=== PATIENT | female | born 1965 | race American Indian/Alaskan Native ===

== ENCOUNTER 2017-02-11 23:43 | Inpatient (IN) | payer OTHER ==
[2017-02-12 00:11] LABS: Basophils % (Auto) 0.3 % (0.0-1.8); Eosinophils % (Auto) 2.5 % (0.0-4.3); Hematocrit 38.6 % (30.3-42.9); Hemoglobin 12.4 gm/dl (10.1-14.3); Mean Corpuscular HGB Conc 32 % (30-34); Mean Corpuscular Volume 78 fl (79-97); Platelet Count 152 K/mm3 (140-440); Red Blood Count 4.93 M/mm3 (3.65-5.03); Red Cell Distribution Width 15.1 % (13.2-15.2)
[2017-02-12 00:14] LABS: Mean Corpuscular Hemoglobin 25 pg (28-32)
[2017-02-12 00:32] LABS: Anion Gap 19 mmol/L; BUN/Creatinine Ratio 12.22; Blood Urea Nitrogen 11 mg/dL (7-17); Calcium 9.1 mg/dL (8.4-10.2); Carbon Dioxide 24 mmol/L (22-30); Chloride 99.5 mmol/L (98-107); Glucose 109 mg/dL (65-100); Potassium 4.4 mmol/L (3.6-5.0); Sodium 138 mmol/L (137-145)
[2017-02-12 00:43] LABS: INR 1.1 (0.87-1.13); Partial Thromboplastin Time 26.1 Sec. (24.2-36.6)
--- NOTE | 2017-02-12 00:44 | Emergency Department Report ---
ED Chest Pain HPI - General Chief Complaint: Chest Pain Stated Complaint: CHEST PAIN Time Seen by Provider: 02/12/17 00:06 Source: patient Mode of arrival: Ambulatory Limitations: No Limitations - History of Present Illness Initial Comments: 51-year-old female presents to the emergency department complaining of chest pain. Patient states for the past 2 days she has been having intermittent right -sided chest pain. This pain does not radiate. Patient is unable to describe the pain other than "pain". She reports mild difficulty breathing. She states the pain is worse when taking a deep breath. She denies dizziness, diaphoresis , nausea, or vomiting. at bedside also notes that the patient's heart rate has been elevated at home. There are no other complaints. MD Complaint: chest pain -: Gradual, days(s) (2) Onset: during rest Pain Location: right chest Pain Radiation: none Severity: mild Severity scale (0 -10): 3 Quality: other ("pain") Consistency: intermittent Improves With: nothing Worsens With: inspiration re: dyspnea. denies: nausea, vomting, diaphoresis Treatments Prior to Arrival: none Aspirin use within the Past 7 Days: (1) Yes - Related Data Home Medications Medication Instructions Recorded Confirmed Last Taken Aspirin [[place] Aspirin] 81 mg PO DAILY 03/03/14 02/12/17 02/12/17 Lacosamide [Vimpat] 200 mg PO BID 03/03/14 02/12/17 02/12/17 levETIRAcetam [Keppra TAB] 750 mg PO BID 02/12/17 02/12/17 02/12/17 Allergies Allergy/AdvReac Type Severity Reaction Status Date / Time No Known Allergies Allergy Verified 12/13/14 09:40 Heart Score - HEART Score History: Slightly suspicious EKG: Non-specific Age: 45-65 Risk factors: 1-2 risk factors Troponin: < normal limit HEART Score: 3 ED Review of Systems ROS: Stated complaint: CHEST PAIN Other details as noted in HPI Comment: All other systems reviewed and negative Respiratory: shortness of breath Cardiovascular: chest pain, palpitations ED Past Medical Hx - Past Medical History Previous Medical History?: Yes Hx Seizures: Yes Additional medical history: lupus - Surgical History Past Surgical History?: No - Family History Family history: no significant - Social History Smoking Status: Never Smoker Substance Use Type: Alcohol - Medications Home Medications: Home Medications Medication Instructions Recorded Confirmed Last Taken Type Aspirin [[place] Aspirin] 81 mg PO DAILY 03/03/14 02/12/17 02/12/17 History Lacosamide [Vimpat] 200 mg PO BID 03/03/14 02/12/17 02/12/17 History levETIRAcetam [Keppra TAB] 750 mg PO BID 02/12/17 02/12/17 02/12/17 History ED Physical Exam - General Limitations: No Limitations General appearance: alert, in no apparent distress - Head Head exam: Present: atraumatic, normocephalic - Eye Eye exam: Present: normal appearance, PERRL, EOMI - ENT ENT exam: Present: normal exam, normal orophraynx, mucous membranes moist - Neck Neck exam: Present: normal inspection, full ROM. Absent: tenderness - Respiratory Respiratory exam: Present: normal lung sounds bilaterally. Absent: respiratory distress - Cardiovascular Cardiovascular Exam: Present: normal rhythm, tachycardia, normal heart sounds - GI/Abdominal GI/Abdominal exam: Present: soft, normal bowel sounds. Absent: distended, tenderness - Extremities Exam Extremities exam: Present: normal inspection, full ROM. Absent: tenderness - Back Exam Back exam: Present: normal inspection, full ROM. Absent: tenderness - Neurological Exam Neurological exam: Present: alert, oriented X3. Absent: motor sensory deficit - Skin Skin exam: Present: warm, dry, intact ED Course Vital Signs 02/11/17 02/11/17 02/12/17 23:47 23:54 00:00 Temperature 97.6 F Pulse Rate 65 123 H 121 H Respiratory 18 20 34 H Rate Blood Pressure 151/96 Blood Pressure 157/104 [Right] O2 Sat by Pulse 100 100 99 Oximetry 02/12/17 02/12/17 02/12/17 00:07 00:11 00:20 Temperature Pulse Rate 115 H 124 H 126 H Respiratory 31 H 30 H 30 H Rate Blood Pressure 151/96 145/100 Blood Pressure 147/99 [Right] O2 Sat by Pulse 100 99 99 Oximetry 02/12/17 02/12/17 02/12/17 00:30 00:41 00:51 Temperature Pulse Rate 125 H 126 H 124 H Respiratory 29 H 24 31 H Rate Blood Pressure 133/99 145/100 133/85 Blood Pressure [Right] O2 Sat by Pulse 100 99 99 Oximetry 02/12/17 02/12/17 02/12/17 01:00 01:19 01:21 Temperature Pulse Rate 112 H 113 H 112 H Respiratory 29 H 16 18 Rate Blood Pressure 122/91 122/91 122/91 Blood Pressure [Right] O2 Sat by Pulse 99 100 Oximetry 02/12/17 02/12/17 02/12/17 01:30 01:41 01:51 Temperature Pulse Rate 119 H 116 H 106 H Respiratory 20 16 24 Rate Blood Pressure 121/97 121/97 121/88 Blood Pressure [Right] O2 Sat by Pulse 100 99 98 Oximetry 02/12/17 02/12/17 02/12/17 02:00 02:11 02:21 Temperature Pulse Rate 118 H 117 H 104 H Respiratory 19 25 H 21 Rate Blood Pressure 122/86 122/86 117/84 Blood Pressure [Right] O2 Sat by Pulse 98 99 98 Oximetry 02/12/17 02/12/17 02/12/17 02:30 02:41 02:51 Temperature Pulse Rate 116 H 111 H 114 H Respiratory 16 22 21 Rate Blood Pressure 121/83 121/83 122/77 Blood Pressure [Right] O2 Sat by Pulse 98 98 98 Oximetry 02/12/17 02/12/17 02/12/17 03:00 03:11 03:21 Temperature Pulse Rate 116 H 100 H 101 H Respiratory 22 28 H 21 Rate Blood Pressure 123/87 123/87 120/90 Blood Pressure [Right] O2 Sat by Pulse 98 99 98 Oximetry 02/12/17 02/12/17 02/12/17 03:52 04:00 04:10 Temperature Pulse Rate 114 H 116 H 96 H Respiratory 22 19 Rate Blood Pressure 120/90 128/98 120/90 Blood Pressure [Right] O2 Sat by Pulse 98 99 Oximetry 02/12/17 02/12/17 02/12/17 04:21 04:31 04:41 Temperature Pulse Rate 118 H 95 H 84 Respiratory 18 22 21 Rate Blood Pressure 120/90 120/90 120/90 Blood Pressure [Right] O2 Sat by Pulse 100 99 98 Oximetry 02/12/17 04:51 Temperature Pulse Rate 87 Respiratory 22 Rate Blood Pressure 128/98 Blood Pressure [Right] O2 Sat by Pulse 99 Oximetry ED Medical Decision Making - Lab Data Result diagrams: 02/11/17 23:51 02/11/17 23:51 - EKG Data -: EKG Interpreted by Me EKG shows normal: intervals, QRS complexes Rate: tachycardia - EKG Data When compared to previous EKG there are: previous EKG unavailable Interpretation: nonspecific ST-T wave lee, other (atrial flutter with variable block, right axis deviation) - Radiology Data Radiology results: report reviewed, image reviewed interpreted by me: Chest x-ray shows cardiomegaly. There are no other acute abnormalities. CTA of the chest shows no evidence of pulmonary embolism. There is a filling defect in the left atrium that is possibly a mass versus a thrombus. - Medical Decision Making Lab and imaging results reviewed and discussed with the patient and family. Patient initially had a rhythm of atrial flutter with variable block. Patient has since spontaneously converted to normal sinus rhythm. CT results were discussed with the on-call physician for [facility] heart specialists. Patient is empirically being started on a heparin drip. Transesophageal echocardiogram is being ordered. Patient is to be admitted by the hospitalist. - Differential Diagnosis ACS, atypical chest pain, hyperthyroidism, PE Critical care attestation.: If time is entered above; I have spent that time in minutes in the direct care of this critically ill patient, excluding procedure time. ED Disposition Clinical Impression: Paroxysmal atrial flutter, Left atrial mass Disposition: -09 OP ADMIT IP TO THIS HOSP Is pt being admited?: Yes Condition: Stable Referrals: PRIMARY CARE, [Primary Care Provider] - 3-5 Days Time of Disposition: 05:18
--- NOTE | 2017-02-12 02:00 | XRay Report ---
FINAL REPORT PROCEDURE: XR CHEST 1V AP TECHNIQUE: Chest radiograph anteroposterior view. CPT 22668 HISTORY: chest pain COMPARISON: No prior studies are available for comparison. FINDINGS: Heart: Heart is enlarged Mediastinum/Vessels: Normal. Lungs/Pleural space: Lungs are well-expanded and clear. There are no infiltrates, effusions or pneumothoraces.. Bony thorax: No acute osseous abnormality. Life support devices: None. IMPRESSION: No acute cardiopulmonary abnormality.
[2017-02-12] MEDS ORDERED: NACL ONE (03:30)
--- NOTE | 2017-02-12 04:44 | Cat Scan Report ---
FINAL REPORT PROCEDURE: CT ANGIO CHEST TECHNIQUE: Computerized axial tomographic angiography of the chest and pulmonary arteries was performed after the IV injection of iodinated nonionic contrast. The image data was postprocessed using maximum intensity projection (MIP) and 2-dimensional multiplanar reformatted (MPR) techniques. The examination is specifically tailored to the evaluation of the pulmonary arteries per clinical request. HISTORY: Short of breath 786.09, chest pain 786.50, chest pain, SOB, r/o PE COMPARISON: No prior studies are available for comparison. FINDINGS: Heart and pericardium: The heart is borderline enlarged. There is dilatation of the left atrium. There is contrast in the left atrium. There is a mural based filling defect measuring 2.5 x 5 x 1 centimeters along the posterior wall which could be left atrial thrombus. A mass cannot be excluded. Transesophageal echocardiogram is recommended.. Thoracic aorta: There is no thoracic aortic aneurysm or dissection.. Pulmonary vasculature: There is no pulmonary embolism.. Lymph nodes: No enlarged thoracic lymph nodes. Lungs: There are no infiltrates, effusions or pneumothoraces. The lungs are well-expanded.. Pleural space: No effusion, thickening, or pneumothorax. Musculoskeletal structures: No significant abnormality. Upper abdominal structures: No significant abnormality. IMPRESSION: There is no thoracic aortic aneurysm or dissection. There is no pulmonary embolism.. There is a left atrial mass or thrombus. Transesophageal echocardiogram suggested.
[2017-02-12] MEDS ORDERED: HEPARIN 10,000 UNITS/10 ML IV ONE (05:14)
[2017-02-12] MEDS ORDERED: ZOFRAN IV PRN (05:31)
[2017-02-12] MEDS ORDERED: MORPHINE IV PRN (05:31)
[2017-02-12] MEDS ORDERED: TYLENOL PO PRN (05:32)
[2017-02-12] MEDS: HEPARIN/ 0.45% NACL-25,000 UNIT/500 ML 25,000 UNIT/500 ML BAG IV SCH ×2 (05:49→23:00)
--- NOTE | 2017-02-12 06:05 | History and Physical Report ---
History of Present Illness Date of examination: 02/12/17 Date of admission: 02/12/2017 Chief complaint: Chief complaint is palpitation, there complaining include chest pain and shortness of breath History of present illness: History of present illness, patient is a 51-year-old female who started having chest pain going on for the last 24-48 hours and feet hours prior to presentation patient developed rapid heartbeat associated with shortness of breath but no diaphoresis and no nausea vomiting. There is also no history of dizziness cough for fever Past History Past Medical History: seizures, other (LUPUS) Past Surgical History: No surgical history Social history: no significant social history Family history: no significant family history Medications and Allergies Allergies Allergy/AdvReac Type Severity Reaction Status Date / Time No Known Allergies Allergy Verified 12/13/14 09:40 Home Medications Medication Instructions Recorded Confirmed Last Taken Type Aspirin [[place] Aspirin] 81 mg PO DAILY 03/03/14 02/12/17 02/12/17 History Lacosamide [Vimpat] 200 mg PO BID 03/03/14 02/12/17 02/12/17 History levETIRAcetam [Keppra TAB] 750 mg PO BID 02/12/17 02/12/17 02/12/17 History Active Meds: Active Medications Acetaminophen (Tylenol) 650 mg PO Q4H PRN PRN Reason: For Pain/Fever/Headache Heparin Sodium/Sodium Chloride (Heparin/ 0.45% Nacl-25,000 Unit/500 Ml) 25,000 unit in 500 mls @ 18 mls/hr IV TITR CODY; 900 UNITS/HR PRN Reason: Protocol Last Admin: 02/12/17 05:49 Dose: 900 units/hr, 18 mls/hr Morphine Sulfate (Morphine) 2 mg IV Q3H PRN PRN Reason: Pain, Moderate (4-6) Ondansetron HCl (Zofran) 4 mg IV Q6H PRN PRN Reason: Nausea And Vomiting Review of Systems Constitutional: no weight loss, no weight gain, no fever, no sweats, no night sweats, no fatigue, no weakness, no malaise, no lethargy, no poor appetite Eyes: bilateral: other (NO BILATERAL EYE SYMPTOMS) Ears, nose, mouth and throat: no ear pain, no ear discharge, no tinnitis, no decreased hearing, no nose pain, no nasal congestion, no nasal discharge, no bleeding gums, no dental pain, no mouth pain, no dysphagia, no hoarseness, no sore throat, no swelling in mouth, no post-nasal drip, no headache Breasts: deferred Cardiovascular: chest pain, shortness of breath, dyspnea on exertion, no lightheadedness Respiratory: cough, shortness of breath, no congestion, no pleurisy, no pain on inspiration Gastrointestinal: no abdominal pain, no nausea, no vomiting, no diarrhea, no constipation, no change in bowel habits, no hematemesis, no coffee ground emesis , no melena, no hematochezia, no early satiety, no heartburn, no jaundice, no dyspepsia/bloating, no early satiety, no lactose intolerance Genitourinary Female: no dyspareunia, no dysmenorrhea, no pelvic pain, no flank pain, no menorrhagia, no dysuria, no urinary frequency, no urgency, no stress incontinence, no post void dribbling, no incomplete emptying, no urge incontinence, no mixed incontinence, no difficulty voiding, no vaginal itching, no vaginal discharge, no vaginal odor, no abnormal vaginal bleeding, no genital sores, no vaginal dryness, no decreased libido, no mood problems, no prolapse symptoms, no difficulties conceiving Menstruation: no currently menstrual, no premenarcheal Rectal: no pain, no itching, no hemorrhoids, no flatulence Musculoskeletal: no neck stiffness, no neck pain, no shooting arm pain, no arm numbness/tingling, no low back pain, no shooting leg pain, no morning stiffness , no muscle weakness, no muscle cramps, no myalgias, no fractures, no prior amputations Integumentary: no rash, no pruritis, no redness, no sores, no wounds, no jaundice, no boils, no blisters, no growths, no bullae, no darkening of skin, no depigmentation, no acne, no dryness, no color changes, no unusual bruising, no brittle nails, no striae, no hirsutism, no foot/leg ulcers, no onychomycosis Neurological: no transient paralysis, no paralysis, no weakness, no parathesias , no numbness, no tingling, no seizures, no syncope, no headaches, no migraines , no convulsions, no change in speech, no change in mentation, no confusion, no memory loss, no motor disturbance, no sensory deficit, no double vision, no loss of vision, no hearing difficulties, no burning pain Psychiatric: no memory loss, no change in sleep habits, no sleep disturbances, no insomnia, no hypersomnia, no change in appetite, no change in libido, no suicidal ideation, no disorientation, no hallucinations, no depression, no hopelessness, no anhedonia, no anxiety attacks, no difficulties concentrating, no confusion Endocrine: no cold intolerance, no heat intolerance, no polyphagia, no excessive thirst, no polydipsia, no polyuria, no nocturia, no excessive sweating , no proptosis, no deepening of the voice, no thyroid mass, no palpatations, no high blood sugars, no low blood sugars, no recent glucocorticoid use Hematologic/Lymphatic: no easy bruising, no easy bleeding, no lymphadenopathy, no lymphedema, no thrombophilia Allergic/Immunologic: no urticaria, no allergic rhinitis, no persistent infections, no anaphylaxis, no gluten intolerance, no seasonal allergies Exam - Constitutional Vitals: Temp Pulse Resp BP Pulse Ox 97.6 F 87 22 128/98 99 02/11/17 23:47 02/12/17 04:51 02/12/17 04:51 02/12/17 04:51 02/12/17 04:51 General appearance: Present: no acute distress. Absent: well-nourished, disheveled - EENT Eyes: Present: PERRL, EOM intact. Absent: scleral icterus ENT: hearing intact, clear oral mucosa, dentition normal, no oropharyngeal erythema - Neck Neck: Present: supple, normal ROM. Absent: rigidity, enlarged thyroid, masses or JVD, carotid bruits - Respiratory Respiratory effort: normal - Cardiovascular Rhythm: regular Heart Sounds: Present: S1 & S2. Absent: gallop, systolic murmur, diastolic murmur, rub, click - Extremities Extremities: no ischemia, No edema Peripheral Pulses: within normal limits - Abdominal General gastrointestinal: Present: soft, non-tender, non-distended, normal bowel sounds. Absent: tender, distended, rigid, hypoactive bowel sounds Female genitourinary: Present: deferred - Rectal Rectal Exam: deferred - Integumentary Integumentary: Present: clear, warm, dry, normal turgor. Absent: erythema, jaundice, rash, clammy - Musculoskeletal Musculoskeletal: strength equal bilaterally - Psychiatric Psychiatric: appropriate mood/affect - Neurologic Neurologic: CNII-XII intact Results - Labs CBC & Chem 7: 02/11/17 23:51 02/11/17 23:51 Labs: Laboratory Last Values WBC 7.0 K/mm3 (4.5-11.0) 02/11/17 23:51 RBC 4.93 M/mm3 (3.65-5.03) 02/11/17 23:51 Hgb 12.4 gm/dl (10.1-14.3) 02/11/17 23:51 Hct 38.6 % (30.3-42.9) 02/11/17 23:51 MCV 78 fl (79-97) L 02/11/17 23:51 MCH 25 pg (28-32) L 02/11/17 23:51 MCHC 32 % (30-34) 02/11/17 23:51 RDW 15.1 % (13.2-15.2) 02/11/17 23:51 Plt Count 152 K/mm3 (140-440) 02/11/17 23:51 Lymph % (Auto) 28.3 % (13.4-35.0) 02/11/17 23:51 [place] % (Auto) 13.6 % (0.0-7.3) H 02/11/17 23:51 Eos % (Auto) 2.5 % (0.0-4.3) 02/11/17 23:51 Baso % (Auto) 0.3 % (0.0-1.8) 02/11/17 23:51 Lymph # 2.0 K/mm3 (1.2-5.4) 02/11/17 23:51 [place] # 1.0 K/mm3 (0.0-0.8) H 02/11/17 23:51 Eos # 0.2 K/mm3 (0.0-0.4) 02/11/17 23:51 Baso # 0.0 K/mm3 (0.0-0.1) 02/11/17 23:51 Seg Neutrophils % 55.3 % (40.0-70.0) 02/11/17 23:51 Seg Neutrophils # 3.9 K/mm3 (1.8-7.7) 02/11/17 23:51 PT 14.8 Sec. (12.2-14.9) 02/11/17 23:51 INR 1.10 (0.87-1.13) 02/11/17 23:51 APTT 26.1 Sec. (24.2-36.6) 02/11/17 23:51 Sodium 138 mmol/L (137-145) 02/11/17 23:51 Potassium 4.4 mmol/L (3.6-5.0) 02/11/17 23:51 Chloride 99.5 mmol/L (98-107) 02/11/17 23:51 Carbon Dioxide 24 mmol/L (22-30) 02/11/17 23:51 Anion Gap 19 mmol/L 02/11/17 23:51 BUN 11 mg/dL (7-17) 02/11/17 23:51 Creatinine 0.9 mg/dL (0.7-1.2) 02/11/17 23:51 Estimated GFR > 60 ml/min 02/11/17 23:51 BUN/Creatinine Ratio 12.22 % 02/11/17 23:51 Glucose 109 mg/dL (65-100) H 02/11/17 23:51 Calcium 9.1 mg/dL (8.4-10.2) 02/11/17 23:51 Troponin T < 0.010 ng/mL (0.00-0.029) 02/12/17 03:20 TSH 4.900 mlU/mL (0.270-4.200) H 02/12/17 00:23 HCG, Qual Negative (Negative) 02/11/17 23:51 Assessment and Plan - Patient Problems (1) Left atrial mass Current Visit: Yes Status: Acute (2) Paroxysmal atrial flutter Current Visit: Yes Status: Acute Plan to address problem: Patient will be admitted to medical floor on telemetry I will have troponin level checked every 6 hours total of 3 levels patient will be placed on Nitropaste half inch to anterior chest wall every 6 hours and will continue IV heparin bolus and drip started in the emergency room. Patient will be on oxygen by nasal cannula at 2 L/m and will continue cardiology consult with Dr. Molina put in by the emergency room physician for possible transesophageal Echo for atria thrombus. Patient will be on IV morphine 2 mg every 3 hours as needed for pain and IV Zofran 4 mg every 6 hours for nausea vomiting and Tylenol 650 mg by mouth as needed for fever or headache. (3) Chest pain Current Visit: Yes Status: Acute Qualifiers: Chest pain type: C Ischemic chest pain type: I
--- NOTE | 2017-02-12 06:43 | Admit Criteria Form ---
Admission Criteria Documentation: CARDIOLOGY GRG Clinical Indications for Admission to Inpatient Care ( Place 'X' for any and all applicable criteria): Hospital admission is needed for appropriate care of the patient because of ANY ONE of the following (1): [ ] I. Hemodynamic instability as indicated by ALL of the following (1)(2)(3) (4)(5) [ ]a) Vital signs or other findings not as expected for chronic patient condition or baseline [ ]b) Instability indicated by ANY ONE of the following: [ ]i) Hypotension [ ]ii) Symptomatic Tachycardia unresponsive to treatment ( e.g., analgesia, fluids, sedation as indicated) [ ]iii) Inadequate perfusion indicated by ANY ONE of the following: [ ] 1) Lactic acidosis (> 2 mmol/L) [ ] 2) New abnormal capillary refill (> 3 seconds) [ ] 3) Reduced urine output [ ] 4) New altered mental status [ ]iv) Orthostatic vital sign changes unresponsive to treatment (e.g., fluids) [ ]v) IV inotropic or vasopressor medication required to maintain adequate blood pressure or perfusion [ ] II. Severe heart failure as indicated by ANY ONE of the following(17)(18) [ ]a) Respiratory distress [ ]b) Hypotension [ ]c) Anasarca (refractory to outpatient therapy) [ ]d) Cardiac arrhythmias of immediate concern [ ]e) Myocardial ischemia [ ] III. Cardiac arrhythmias or findings of immediate concern indicated by ANY ONE of the following (19)(20): [ ] a) Heart rhythms that are inherently dangerous or unstable indicated by ANY ONE of the following (21)(22)(23): [ ] i) Resuscitated ventricular fibrillation or cardiac arrest [ ] ii) Ventricular escape rhythm [ ] iii) Sustained ventricular tachycardia (30 seconds or more of ventricular rhythm at greater than 100 beats per minute) [ ] iv) Nonsustained ventricular tachycardia and ANY ONE of the following: [ ] 1) Suspected cardiac ischemia as cause or consequence of ventricular tachycardia [ ] 2) In setting of acute myocarditis [ ] b) Unstable cardiac conduction defects indicated by ANY ONE of the following(23)(24)(25) [ ] i) Type II second-degree atrioventricular block [ ]ii) Third-degree atrioventricular block [ ]iii) New-onset left bundle branch block with suspected myocardial ischemia [ ]c) Any heart rhythm and ANY ONE of the following (21)(22)(26)(27) (28) [ ] i) Continuous long-term ECG monitoring needed (e.g., initiation of drug requiring monitoring for more than 24 hours) [ ] ii) Patient has automatic implanted cardioverter defibrillator that is repeatedly firing, malfunctioning, or in need of immediate adjustment of settings beyond the scope of ambulatory or observation care [ ]d) Heart rhythms of concern due to ANY ONE of the following: [ ] i) Hypotension [ ] ii) Respiratory distress [ ] iii) Association with other significant symptoms (e.g., bradycardia with syncope or ongoing dizziness, supraventricular tachycardia with chest pain (14)(15)(17) [ ] IV. Monitoring for cardiac contusion beyond the scope of observation care needed [A](30)(31)(32) [ ] V. Surgical or device complication (e.g., valve replacement complication , pacemaker dysfunction) (35)(41)(44)(45)(46) [ ] . Inpatient palliative care needed. [B](49) Also use Inpatient Palliative Care Criteria [ ] VII. Nonbacterial thrombotic (marantic) endocarditis (36)(43)(47)(48) [ X] VIII. Cardiology condition, symptom, or finding for which emergency and observation care has failed or are not considered appropriate. [ ] IX. Acute valvular disease requiring inpatient as indicated by ANY ONE of the following (41) [ ]a) Acute valvular regurgitation (42) [ ]b) Noninfectious valvulitis (43) [ ]c) Obstructive valve thrombosis [ ]d) Paravalvular leak [ ]e) Other significant valvular disorder remaining after emergency or observation level of care (as appropriate) [ ]X. Pericardial disease requiring inpatient treatment as indicated by ANY ONE of the following (33)(34)(35)(36)(37) [ ]a) Suspected tamponade (38)(39)(40) [ ]b) Hemopericardium [ ]c) Other significant pericardial disorder remaining after emergency or observation level of care (as appropriate) [ ] XI. Cardiac ischemia beyond scope of emergency and observation care. [ ] XII. Hypertension requiring inpatient treatment as indicated by ANY ONE of the following (6)(7)(8) [ ]a) SBP greater than 220 mm Hg or DBP greater than 120 mmHg despite treatment [ ]b) SBP greater than 140 mm Hg or DBP greater than 100 mm Hg with evidence of acute end organ damage as indicated by ANY ONE of the following [ ] i) Altered mental status [ ] ii) Acute renal failure as indicated by new onset of ANY ONE of the following (9)(10)(11)(12)(13) [ ]1) 3-fold rise in serum creatinine from baseline [ ]2) Serum creatinine greater than 4 mg/dL ( 354 micromoles/L) with acute rise greater than 0.5 mg/dL (44.2 micromoles/L) [ ]3) Reduction of more than 75% in estimated glomerular filtration rate from baseline [ ]4) Estimated glomerular filtration rate less than 35 mL/min/1.73m2 (0.59 mL/sec/1.73m2) in child up to 18 years of age [ ]5) Cessation of urine output indicated by ALL of the following [ ]A. Adequate volume status [ ]B. Inadequate urine output as indicated by ANY ONE of the following [ ]a. Urine output less than 0.3 mL/kg/hr for 24 hours [ ]b. Anuria (urine output less than 0.1 mL/kg/hr) for 12 hours [ ] iii) Aortic dissection [ ] iv) Myocardial Ischemia [ ] v) Left ventricular heart failure [ ]vi) Retinal Hemorrhage [ ]vii) Other significant finding [ ]c) Hypertension in child requiring inpatient treatment as indicated by ALL of the following(14)(15)(16) [ ] i) Outpatient treatment not effective, not available, or not appropriate [ ]ii) SBP or DBP greater than 95th percentile for age [ ]iii) Evidence of acute end organ damage as indicated by ANY ONE of the following [ ]1) Altered mental status [ ]2) Acute renal failure as indicated by new onset of ANY ONE of the following(9)(10)(11)(12)(13) [ ]A. 3-fold rise in serum creatinine from baseline [ ]B. Serum creatinine greater than 4 mg/dL (354 micromoles/L) with acute rise greater than 0.5 mg/dL (44.2 micromoles/L) [ ]C. Reduction of more than 75% in estimated glomerular filtration rate from baseline [ ]D. Estimated glomerular filtration rate less than 35 mL/min/1.73m2 (0.59 mL/sec/1.73m2) in child up to 18 years of age [ ]E. Cessation of urine output indicated by ALL of the following [ ]a. Adequate volume status [ ]b. Inadequate urine output as indicated by ANY ONE of the following [ ]i) Urine output less than 0.3 mL/kg/hr for 24 hours [ ]ii) Anuria ( urine output less than 0.1 mL/kg/hr) for 12 hours [ ]3) Severe headache [ ]4) Visual disturbance [ ]5) Retinal hemorrhage [ ]6) Other significant finding [ ]XIII. Complications of transplanted heart indicated by ANY ONE of the following(61): [ ]a) Acute graft rejection requiring inpatient management (eg, intravenous immunosuppression)(62)(63) [ ]b) Acute graft heart failure indicated by ANY ONE of the following(64): [ ]i) Hemodynamic instability [ ]ii) Cardiac arrhythmias of immediate concern [ ]iii) Pulmonary edema that is very severe (eg, mechanical ventilation needed, imminent or likely, need for 100% oxygen to keep oxygen saturation above 90%) [ ]iv) Pulmonary edema that is persistent as indicated by ALL of the following: [ ]1) New need for oxygen therapy to keep oxygen saturation above 90% (or increased FiO2 need from baseline) [ ]2) Has not improved sufficiently with emergency department or observation care IV diuretics or other heart failure treatments[E] [ ]v) Altered mental status that is severe or persistent [ ]vi) Increased creatinine (new on laboratory test) with reduction of more than 50% in estimated glomerular filtration rate from baseline [ ]vii) Progressively (ongoing) rising creatinine (known from past laboratory test) with reduction of more than 25% in estimated glomerular filtration rate from baseline [ ]viii) Acute renal failure [ ]ix) Acute peripheral ischemia (eg, examination shows pulseless, cool, mottled, or cyanotic extremity) [ ]x) Pulmonary artery catheter monitoring needed [ ]xi) Other sign or symptom of heart failure requiring inpatient treatment (ie, too severe or not responsive to outpatient and observation care treatment) [ ]c) Infection requiring inpatient management (eg, Hemodynamic instability, need for intravenous antimicrobial treatment)(66)(67)(68)(69)(70) [ ]d) Cardiac allograft vasculopathy requiring inpatient management ( eg evidence of cardiac ischemia)(71) [ ]e) Other complication of transplanted heart (eg, stroke, severe pulmonary hypertension, severe valvular dysfunction) requiring inpatient management(72) The original [facility] content created by [facility] has been revised. The portions of the content which have been revised are identified through the use of italic text or in bold, and [facility] has neither reviewed nor approved the modified material. All other unmodified content is copyright [facility] [employer] [employer]. Please see references footnoted in the original [facility] edition 2016 Admission Criteria Met: Yes
[2017-02-12] MEDS ORDERED: NITRO-BID 2% TP ONE (07:50)
[2017-02-12] MEDS: NITRO-BID 2% TP SCH ×3 (07:54→18:11)
[2017-02-12] MEDS ORDERED: NON-FORMULARY (Levetiracetam [Keppra Tab] 750 MG) PO SCH (10:00)
[2017-02-12] MEDS ORDERED: NON-FORMULARY (Lacosamide [Vimpat] 200 MG) PO SCH (10:00)
--- NOTE | 2017-02-12 12:07 | Consultation ---
History of Present Illness Consult date: 02/12/17 Requesting physician: YAJAIRA HOWELL Consult reason: atrial fibrillation History of present illness: Pt is a 51 YO female with a past medical history significant for Lupus, seizure d/o, and "heart murmur". She is previously unknown to our practice. She presented with c/o SOB, palpitations, and intermittent nonexertional nonradiating right-sided chest pain x 2 days MEDICAL OFFICE SCHEDULER. She reports that in 1999, following the of her daughter, she had some "heart issues" and was told she needed heart transplant. She has not had any cardiac follow-up since then. On admission, she was found to be in AFlutter with RVR, HR 130s, BPS stable. She then spontaneously converted to SR and remains in SR. She underwent chest CTA which showed a filling defect in the left atrium that is possibly a mass versus thrombus. She was initiated on heparin gtt. She underwent TTE which also preliminarily reveals mass v. thrombus in LA and mitral stenosis. She denies any history of rheumatic fever. On evaluation, she denies any current complaints. She is scheduled for NERIS tomorrow at 9AM. Past History Past Medical History: other (LUPUS) Past Surgical History: No surgical history Social history: no significant social history Family history: no significant family history Medications and Allergies Allergies Allergy/AdvReac Type Severity Reaction Status Date / Time No Known Allergies Allergy Verified 12/13/14 09:40 Home Medications Medication Instructions Recorded Confirmed Last Taken Type Aspirin [Freeborn Aspirin] 81 mg PO DAILY 03/03/14 02/12/17 02/12/17 History Lacosamide [Vimpat] 200 mg PO BID 03/03/14 02/12/17 02/12/17 History levETIRAcetam [Keppra TAB] 750 mg PO BID 02/12/17 02/12/17 02/12/17 History Active Meds: Active Medications Acetaminophen (Tylenol) 650 mg PO Q4H PRN PRN Reason: For Pain/Fever/Headache Aspirin (Baby Aspirin) 81 mg PO DAILY CODY Heparin Sodium/Sodium Chloride (Heparin/ 0.45% Nacl-25,000 Unit/500 Ml) 25,000 unit in 500 mls @ 18 mls/hr IV TITR CODY; 900 UNITS/HR PRN Reason: Protocol Last Admin: 02/12/17 05:49 Dose: 900 units/hr, 18 mls/hr Lacosamide (Vimpat) 200 mg PO Q12HR [facility] Levetiracetam (Keppra) 750 mg PO BID [facility] Morphine Sulfate (Morphine) 2 mg IV Q3H PRN PRN Reason: Pain, Moderate (4-6) Nitroglycerin (Nitro-Bid 2%) 0.5 inch TP QIDNTG CODY PRN Reason: Protocol Last Admin: 02/12/17 07:54 Dose: 0.5 inch Ondansetron HCl (Zofran) 4 mg IV Q6H PRN PRN Reason: Nausea And Vomiting Review of Systems Constitutional: no weight loss, no weight gain, no fever, no chills, no sweats Ears, nose, mouth and throat: no ear pain, no nose pain, no sinus pressure, no sinus pain Cardiovascular: chest pain, palpitations, rapid/irregular heart beat, shortness of breath, dyspnea on exertion, no orthopnea, no edema, no syncope, no lightheadedness Respiratory: shortness of breath, dyspnea on exertion, no cough, no congestion, no wheezing, no pain Gastrointestinal: no abdominal pain, no nausea, no vomiting, no diarrhea, no constipation, no change in bowel habits Genitourinary Female: no pelvic pain, no flank pain, no dysuria, no urinary frequency, no urgency Musculoskeletal: no neck stiffness, no neck pain, no shooting arm pain, no arm numbness/tingling, no low back pain, no shooting leg pain, no leg numbness/ tingling, no redness of joints Integumentary: no rash, no pruritis, no redness, no sores, no wounds Neurological: no head injury, no paralysis, no weakness, no parathesias, no numbness, no tingling, no seizures Psychiatric: no anxiety Endocrine: no cold intolerance, no heat intolerance Hematologic/Lymphatic: no easy bruising Allergic/Immunologic: no urticaria, no wheezing, no persistent infections Physical Examination Vital Signs Temp Pulse Resp BP Pulse Ox 97.6 F 65 18 157/104 100 02/11/17 23:47 02/11/17 23:47 02/11/17 23:47 02/11/17 23:47 02/11/17 23:47 General appearance: no acute distress HEENT: Positive: PERRL, Normocephaly, Mucus Membranes Moist Neck: Positive: neck supple, trachea midline Cardiac: Positive: Reg Rate and Rhythm, S1/S2, S3, Diastolic Murmur Lungs: Positive: clear to auscultation Neuro: Positive: Grossly Intact, Cranial Nerve 2-12 Intact Abdomen: Positive: Unremarkable, Soft, Active Bowel Sounds. Negative: Tender Skin: Positive: Clear. Negative: Rash, Wound Musculoskeletal: No Fluid Collection, No Pain, Normal Range of Motion Extremities: Present: upper extr. pulses, lower extr. pulses. Absent: edema Results 02/11/17 23:51 02/11/17 23:51 - Imaging and Cardiology Echo: pending EKG: report reviewed, image reviewed EKG interpretations - Telemetry EKG Rhythm: Sinus Rhythm - EKG Supraventricular dysrhythmia: atrial fibrillation Assessment and Plan Assessment: Transient atrial fibrillation with RVR --> SR LA mass v. thrombus Mitral stenosis Lupus Seizure d/o Plan: Continue heparin gtt. Proceed with NERIS tomorrow ~9AM. NPO after MN. Indications, potential risks, and benefits of procedure reviewed with pt and she is agreeable to proceed in AM. Cont tele. Monitor volume status and hemodynamic status closely in setting of MS. Assessment and plan reviewed with pt at bedside. The patient has been seen in conjunction with Dr. Pedro who agrees with the assessment and plan of care.
[2017-02-12] MEDS: VIMPAT PO SCH ×2 (13:02→21:31)
[2017-02-12] MEDS: KEPPRA PO SCH ×2 (13:02→21:31)
[2017-02-12] MEDS: BABY ASPIRIN PO SCH (13:03)
[2017-02-13] MEDS: HEPARIN/ 0.45% NACL-25,000 UNIT/500 ML 25,000 UNIT/500 ML BAG IV SCH ×3 (04:19→22:02)
[2017-02-13] MEDS ORDERED: CARDIZEM IV ONE (05:41)
[2017-02-13] MEDS: NITRO-BID 2% TP SCH ×2 (06:01→10:00)
[2017-02-13 06:33] LABS: Hematocrit 35.4 % (30.3-42.9); Hemoglobin 11.3 gm/dl (10.1-14.3); Mean Corpuscular HGB Conc 32 % (30-34); Mean Corpuscular Volume 78 fl (79-97); Platelet Count 154 K/mm3 (140-440); Red Blood Count 4.56 M/mm3 (3.65-5.03); Red Cell Distribution Width 15.1 % (13.2-15.2); White Blood Count 6.5 K/mm3 (4.5-11.0)
[2017-02-13 06:34] LABS: Mean Corpuscular Hemoglobin 25 pg (28-32)
[2017-02-13 06:57] LABS: Anion Gap 12 mmol/L; BUN/Creatinine Ratio 16.66; Blood Urea Nitrogen 15 mg/dL (7-17); Calcium 8.1 mg/dL (8.4-10.2); Carbon Dioxide 28 mmol/L (22-30); Chloride 102.6 mmol/L (98-107); Glucose 110 mg/dL (65-100); Sodium 139 mmol/L (137-145)
[2017-02-13] MEDS ORDERED: DIPRIVAN 10 MG/ML IV ONE ×2 (08:25)
[2017-02-13] MEDS ORDERED: XYLOCAINE MPF 2% ONE (08:25)
[2017-02-13] MEDS ORDERED: VERSED ONE (08:25)
--- NOTE | 2017-02-13 08:53 | Anesthesia Day of Surgery ---
Anesthesia Day of Surgery - Day of Surgery Patient Examined: Yes Patient H&P Reviewed: Yes Patient is NPO: Yes
--- NOTE | 2017-02-13 08:53 | Anesthesia Consultation ---
Anesthesia Consult and Med Hx Date of service: 02/13/17 - Airway Anesthetic Teeth Evaluation: Good ROM Head & Neck: Adequate Mental/Hyoid Distance: Adequate Mallampati Class: Class I Intubation Access Assessment: Good - Pulmonary Exam CTA: Yes - Cardiac Exam Anesthetic Concerns: Tachycardic - Pre-Operative Health Status ASA Pre-Surgery Classification: ASA2 Proposed Anesthetic Plan: General - Central Nervous System Hx Seizures: Yes Hx Psychiatric Problems: No - Other Systems Hx Cancer: No - Additional Comments Anesthesia Medical History Comments: No previous anesthesia complication. Denies family history of complications. Admits to lupus.
[2017-02-13] MEDS ORDERED: HURRICAINE ONE 20% TOPICAL SPRAY MM NR (09:00)
[2017-02-13] MEDS ORDERED: NACL 0.9% 500 ML 500 ML ONE (09:05)
--- NOTE | 2017-02-13 09:48 | Post Anesthesia Evaluation ---
- Post Anesthesia Evaluation Patient Participated: Yes Airway Patent: Yes Stable Respiratory Function: Yes Nausea/Vomiting: No Temp > 96.8F: Yes Pain Manageable: Yes Adequeate Hydration: Yes Anesthesia Complications: No Block Receding Appropriately: Not Applicable Patient on Ventilator: No
--- NOTE | 2017-02-13 10:41 | Event Note ---
Date: 02/13/17 NERIS report (echo agfa reporting system is down at this time): 1. Probable moderate mitral stenosis with fixed/calcified posterior leaflet with mild eccentric anteriorly-directed mitral regurgitation - mean pressure gradient ~8-10mmHg 2. Moderately enlarged left atrium with an oblong 2.7cm x 1.7cm mass adherent to the posterior wall likely consistent with organized thrombus 3. Normal left ventricular systolic performance (55-60%) 4. Normal AV 5. No pericardial effusion There were no immediate complications noted. Pt tolerated the procedure well. Recommend: Probable undiagnosed rheumatic fever as a child ([place]) Cont high dose protocol IV heparin gtt- pt is at high risk for cardioembolic phenomena Clinically euvolemic and stable at this time Consider R/L heart cath on Thursday for further assessment of mitral valve area/ coronary anatomy. Will follow. Thanks.
--- NOTE | 2017-02-13 11:29 | Progress Note ---
Assessment and Plan Assessment and plan: 51F who presents with CP and SOB Paroxysmal Afib -start metoprolol PO BID -echo shows preserved EF but Left atrial distension and atrial thrombus -continue heparin drip -Cardiac cath on Thursday -Optimize medications Moderate Mitral stenosis * likely from previous Rheumatic fever * From [place] Atrial Thrombus * High risk of embolic phenomena * Continue high-dose heparin drip * Plan for cardiac cath on Thursday seizure disorder * Continue antiepileptic drugs History Interval history: she says that palpitations and chest pain have resolved Hospitalist Physical - Physical exam Narrative exam: General: Patient appears well in no distress HEENT: MMM, EOMI cardiac: S1-S2 heard lungs: clear to auscultation, abdomen: soft, nontender, nondistended bowel sounds positive extremities: no edema clubbing or cyanosis Skin: no rash or lesion Neuro: no focal deficit Psych: appropriate behavior and mood, cognition intact - Constitutional Vitals: Temp Pulse Resp BP Pulse Ox 97.7 F 102 H 24 106/68 100 02/13/17 09:42 02/13/17 09:42 02/13/17 09:42 02/13/17 09:42 02/13/17 09:42 General appearance: Present: no acute distress Results - Labs CBC & Chem 7: 02/13/17 05:18 02/13/17 05:18 Labs: Laboratory Last Values WBC 6.5 K/mm3 (4.5-11.0) 02/13/17 05:18 RBC 4.56 M/mm3 (3.65-5.03) 02/13/17 05:18 Hgb 11.3 gm/dl (10.1-14.3) 02/13/17 05:18 Hct 35.4 % (30.3-42.9) 02/13/17 05:18 MCV 78 fl (79-97) L 02/13/17 05:18 MCH 25 pg (28-32) L 02/13/17 05:18 MCHC 32 % (30-34) 02/13/17 05:18 RDW 15.1 % (13.2-15.2) 02/13/17 05:18 Plt Count 154 K/mm3 (140-440) 02/13/17 05:18 Lymph % (Auto) 28.3 % (13.4-35.0) 02/11/17 23:51 [place] % (Auto) 13.6 % (0.0-7.3) H 02/11/17 23:51 Eos % (Auto) 2.5 % (0.0-4.3) 02/11/17 23:51 Baso % (Auto) 0.3 % (0.0-1.8) 02/11/17 23:51 Lymph # 2.0 K/mm3 (1.2-5.4) 02/11/17 23:51 [place] # 1.0 K/mm3 (0.0-0.8) H 02/11/17 23:51 Eos # 0.2 K/mm3 (0.0-0.4) 02/11/17 23:51 Baso # 0.0 K/mm3 (0.0-0.1) 02/11/17 23:51 Seg Neutrophils % 55.3 % (40.0-70.0) 02/11/17 23:51 Seg Neutrophils # 3.9 K/mm3 (1.8-7.7) 02/11/17 23:51 PT 14.8 Sec. (12.2-14.9) 02/11/17 23:51 INR 1.10 (0.87-1.13) 02/11/17 23:51 APTT 26.1 Sec. (24.2-36.6) 02/11/17 23:51 Heparin Anti-Xa Level 0.42 U.I./ml (0.3-0.7) 02/12/17 21:08 Sodium 139 mmol/L (137-145) 02/13/17 05:18 Potassium 4.0 mmol/L (3.6-5.0) 02/13/17 05:18 Chloride 102.6 mmol/L (98-107) 02/13/17 05:18 Carbon Dioxide 28 mmol/L (22-30) 02/13/17 05:18 Anion Gap 12 mmol/L 02/13/17 05:18 BUN 15 mg/dL (7-17) 02/13/17 05:18 Creatinine 0.9 mg/dL (0.7-1.2) 02/13/17 05:18 Estimated GFR > 60 ml/min 02/13/17 05:18 BUN/Creatinine Ratio 16.66 % 02/13/17 05:18 Glucose 110 mg/dL (65-100) H 02/13/17 05:18 Calcium 8.1 mg/dL (8.4-10.2) L 02/13/17 05:18 Magnesium 1.90 mg/dL (1.7-2.3) 02/13/17 05:18 Troponin T < 0.010 ng/mL (0.00-0.029) 02/12/17 05:52 TSH 4.900 mlU/mL (0.270-4.200) H 02/12/17 00:23 Free T4 1.22 ng/dL (0.76-1.46) 02/12/17 09:19 Thyroxine (T4) 7.3 ug/dL (4.0-12.0) 02/12/17 09:19 HCG, Qual Negative (Negative) 02/11/17 23:51
--- NOTE | 2017-02-13 11:44 | Progress Note ---
Assessment and Plan Assessment: Paroxysmal atrial fibrillation with RVR LA thrombus Moderate mitral stenosis - probable undiagnosed rheumatic fever as a child ( [place]) Lupus Seizure d/o Plan: S/p NERIS this AM - probable moderate MS with fixed/calcified posterior leaflet with mild eccentric anteriorly-directed mitral regurgitation, mean pressure gradient ~8-10mmHg; Moderately enlarged left atrium with an oblong 2.7cm x 1.7cm mass adherent to the posterior wall likely consistent with organized thrombus; EF 55-60%. Cont high dose protocol IV heparin gtt- pt is at high risk for cardioembolic phenomena. Clinically euvolemic and stable at this time. Consider R/L heart cath on Thursday for further assessment of mitral valve area/ coronary anatomy. Increase lopressor to 25mg PO TID for more adequate HR control. Hold for HR <60 and/or SBP <100. Assessment and plan reviewed with pt at bedside. The patient has been seen in conjunction with Dr. Pedro who agrees with the assessment and plan of care. Subjective Date of service: 02/13/17 Principal diagnosis: MS; LA thrombus Interval history: Pt for NERIS this AM, no complaints. Pt converted back to AFlutter with RVR overnight, HR 120s - 130s, BPs stable. Objective Last Vital Signs Temp 97.7 F 02/13/17 09:42 Pulse 102 H 02/13/17 09:42 Resp 24 02/13/17 09:42 BP 106/68 02/13/17 09:42 Pulse Ox 100 02/13/17 09:42 - Physical Examination General: Appears Well HEENT: Positive: PERRL, Normocephaly, Mucus Membranes Moist Neck: Positive: neck supple, trachea midline Cardiac: Positive: Regular Rhythm, S1/S2, Diastolic Murmur, Tachycardia, Other ( opening snap) Lungs: Positive: Normal Exam, clear to auscultation, Normal Breath Sounds Neuro: Positive: Grossly Intact, Cranial Nerve 2-12 Intact Abdomen: Positive: Unremarkable, Soft, Active Bowel Sounds. Negative: Tender Skin: Positive: Clear. Negative: Rash, Wound Musculoskeletal: No Fluid Collection, No Pain, Normal Range of Motion Extremities: Present: upper extr. pulses, lower extr. pulses. Absent: edema - Labs and Meds CBC 02/13/17 Range/Units 05:18 WBC 6.5 (4.5-11.0) K/mm3 RBC 4.56 (3.65-5.03) M/mm3 Hgb 11.3 (10.1-14.3) gm/dl Hct 35.4 (30.3-42.9) % Plt Count 154 (140-440) K/mm3 Comprehensive Metabolic Panel 02/13/17 Range/Units 05:18 Sodium 139 (137-145) mmol/L Potassium 4.0 (3.6-5.0) mmol/L Chloride 102.6 (98-107) mmol/L Carbon Dioxide 28 (22-30) mmol/L BUN 15 (7-17) mg/dL Creatinine 0.9 (0.7-1.2) mg/dL Glucose 110 H (65-100) mg/dL Calcium 8.1 L (8.4-10.2) mg/dL - Imaging and Cardiology EKG: report reviewed, image reviewed Echo: report reviewed NERIS: report reviewed - Telemetry EKG Rhythm: Sinus Tachycardia
[2017-02-13] MEDS ORDERED: LOPRESSOR PO SCH (12:00)
[2017-02-13] MEDS: VIMPAT PO SCH ×2 (13:15→21:44)
[2017-02-13] MEDS: BABY ASPIRIN PO SCH (13:16)
[2017-02-13] MEDS: KEPPRA PO SCH ×2 (13:17→21:45)
[2017-02-13] MEDS: LOPRESSOR PO SCH ×2 (13:18→21:46)
[2017-02-14] MEDS: NITRO-BID 2% TP SCH ×5 (07:08→17:13)
[2017-02-14] MEDS: KEPPRA PO SCH ×2 (09:40→22:23)
[2017-02-14] MEDS: VIMPAT PO SCH ×2 (09:40→22:22)
[2017-02-14] MEDS: LOPRESSOR PO SCH ×3 (09:40→22:23)
[2017-02-14] MEDS: BABY ASPIRIN PO SCH (09:41)
--- NOTE | 2017-02-14 11:23 | Progress Note ---
Subjective Date of service: 02/14/17 Principal diagnosis: MS; LA thrombus Interval history: Assessment and plan: Paroxysmal Afib with RVR: -cont. metoprolol PO TID Cardiology note reviewed -echo shows preserved EF but Left atrial thrombus -continue high dose heparin drip -Cardiac cath on Thursday -Optimize medications Moderate Mitral stenosis * likely from previous Rheumatic fever * Patient is from [facility] Atrial Thrombus * High risk of embolic phenomena * Continue high-dose heparin drip * Plan for cardiac cath on Thursday seizure disorder * Continue antiepileptic drugs including Keppra and Vimpat Subjective: Patient is alert and oriented. She offers no specific complaints Denies chest pain palpitations or dizziness Objective - Constitutional Vitals: Vital Signs - 12hr 02/14/17 02/14/17 02/14/17 01:02 02:04 05:35 Temperature 98.6 F 98.9 F Pulse Rate 62 Pulse Rate [ Apical] Pulse Rate [ 58 L 71 Left Radial] Respiratory 20 18 Rate Blood Pressure 131/76 90/54 [Left Arm] O2 Sat by Pulse 98 99 Oximetry 02/14/17 08:00 Temperature 98.0 F Pulse Rate Pulse Rate [ 68 Apical] Pulse Rate [ 68 Left Radial] Respiratory 18 Rate Blood Pressure 114/69 [Left Arm] O2 Sat by Pulse 99 Oximetry General appearance: Present: no acute distress - EENT Eyes: PERRL, EOM intact ENT: hearing intact, clear oral mucosa, no thrush - Neck Neck: supple, normal ROM, no masses or JVD - Respiratory Respiratory effort: normal Respiratory: bilateral: CTA, negative: rales, rhonchi - Cardiovascular Rhythm: regular Heart Sounds: Present: S1 & S2 Extremities: No edema - Gastrointestinal General gastrointestinal: Present: soft, non-tender. Absent: hepatomegaly, splenomegaly Rectal Exam: deferred - Integumentary Integumentary: clear - Musculoskeletal Musculoskeletal: strength equal bilaterally - Neurologic Neurologic: no focal deficits - Psychiatric Psychiatric: appropriate mood/affect - Labs CBC & Chem 7: 02/13/17 05:18 02/13/17 05:18 Labs: Abnormal lab results 02/13/17 Range/Units 14:59 Heparin Anti-Xa Level 0.23 L (0.3-0.7) U.I./ml
--- NOTE | 2017-02-14 12:20 | Progress Note ---
Assessment and Plan Assessment: Paroxysmal atrial fibrillation Continue metoprolol 25 3 times a day LA thrombus Transesophageal echocardiogram: Probable moderate mitral stenosis with fixed calcified posterior leaflet with eccentric anteriorly directed mitral regurgitation Mean gradient 8-10 mmHg, left atrial thrombus adherent to the posterior wall, ejection fraction of 50-60% Continue IV heparin drip Plan for right and left heart catheterization on Thursday Moderate mitral stenosis probable undiagnosed rheumatic fever as a child ([facility]) Lupus Seizure disorder Subjective Date of service: 02/14/17 Principal diagnosis: MS; LA thrombus Interval history: Patient is sitting up in bed without complaints. Objective Vital Signs Temp Pulse Pulse Pulse Resp BP BP 02/14/17 08:00 98.0 F 68 68 18 114/69 02/14/17 05:35 98.9 F 71 18 90/54 02/14/17 02:04 62 02/14/17 01:02 98.6 F 58 L 20 131/76 02/13/17 21:46 62 101/60 02/13/17 21:27 02/13/17 19:57 99.9 F H 62 18 101/60 02/13/17 17:00 147 H 02/13/17 13:18 115 H 117/73 Pulse Ox 02/14/17 08:00 99 02/14/17 05:35 99 02/14/17 02:04 02/14/17 01:02 98 02/13/17 21:46 02/13/17 21:27 100 02/13/17 19:57 100 02/13/17 17:00 02/13/17 13:18 - Physical Examination General: Appears Well HEENT: Positive: PERRL, Normocephaly, Mucus Membranes Moist Neck: Positive: neck supple, trachea midline Cardiac: Positive: Reg Rate and Rhythm Lungs: Positive: Normal Exam Neuro: Positive: Grossly Intact, Cranial Nerve 2-12 Intact Abdomen: Positive: Unremarkable, Soft, Active Bowel Sounds. Negative: Tender Skin: Positive: Clear. Negative: Rash, Wound Musculoskeletal: No Fluid Collection, No Pain, Normal Range of Motion Extremities: Present: upper extr. pulses, lower extr. pulses, warm. Absent: edema - Imaging and Cardiology EKG: report reviewed, image reviewed Echo: report reviewed
[2017-02-14 13:41] LABS: Hematocrit 36.9 % (30.3-42.9); Hemoglobin 12.2 gm/dl (10.1-14.3)
[2017-02-14] MEDS: HEPARIN/ 0.45% NACL-25,000 UNIT/500 ML 25,000 UNIT/500 ML BAG IV SCH ×2 (17:16→23:56)
[2017-02-15] MEDS: NITRO-BID 2% TP SCH ×2 (07:50→14:41)
[2017-02-15] MEDS: BABY ASPIRIN PO SCH (09:59)
[2017-02-15] MEDS: VIMPAT PO SCH ×2 (10:00→22:50)
[2017-02-15] MEDS: KEPPRA PO SCH ×2 (10:00→22:50)
[2017-02-15] MEDS: LOPRESSOR PO SCH ×3 (10:01→21:00)
--- NOTE | 2017-02-15 12:57 | Progress Note ---
Assessment and Plan Assessment: Paroxysmal atrial fibrillation Continue metoprolol 25 3 times a day LA thrombus Transesophageal echocardiogram: Probable moderate mitral stenosis with fixed calcified posterior leaflet with eccentric anteriorly directed mitral regurgitation Mean gradient 8-10 mmHg, left atrial thrombus adherent to the posterior wall, ejection fraction of 50-60% Continue IV heparin drip Plan for right and left heart catheterization on Thursday Moderate mitral stenosis probable undiagnosed rheumatic fever as a child ([facility]) Lupus Seizure disorder Subjective Date of service: 02/15/17 Principal diagnosis: MS; LA thrombus Interval history: Patient is sitting up in bed without complaints. Objective Vital Signs Temp Pulse Pulse Pulse Resp BP BP 02/15/17 10:01 70 119/75 02/15/17 10:00 02/15/17 09:52 70 70 18 02/15/17 08:54 97.5 F L 64 64 18 119/75 02/15/17 05:08 98.1 F 63 63 20 106/59 02/15/17 05:06 72 02/15/17 00:50 98.9 F 69 69 18 95/61 02/14/17 22:23 72 100/63 02/14/17 21:03 02/14/17 20:00 98.4 F 72 72 18 100/63 02/14/17 17:00 98.5 F 62 62 18 116/72 Pulse Ox 02/15/17 10:01 02/15/17 10:00 99 02/15/17 09:52 98 02/15/17 08:54 99 02/15/17 05:08 94 02/15/17 05:06 02/15/17 00:50 98 02/14/17 22:23 02/14/17 21:03 100 02/14/17 20:00 100 02/14/17 17:00 100 - Physical Examination General: Appears Well HEENT: Positive: PERRL, Normocephaly, Mucus Membranes Moist Neck: Positive: neck supple, trachea midline Cardiac: Positive: Reg Rate and Rhythm Lungs: Positive: Normal Exam, clear to auscultation Neuro: Positive: Grossly Intact, Cranial Nerve 2-12 Intact Abdomen: Positive: Unremarkable, Soft, Active Bowel Sounds. Negative: Tender Skin: Positive: Clear. Negative: Rash, Wound Musculoskeletal: No Fluid Collection, No Pain, Normal Range of Motion Extremities: Present: upper extr. pulses, lower extr. pulses, warm. Absent: edema - Labs and Meds CBC 02/14/17 Range/Units 13:28 Hgb 12.2 (10.1-14.3) gm/dl Hct 36.9 (30.3-42.9) % Plt Count 173 (140-440) K/mm3 - Imaging and Cardiology EKG: report reviewed, image reviewed Echo: report reviewed
--- NOTE | 2017-02-15 17:32 | Progress Note ---
Assessment and Plan Assessment and plan: --Paroxysmal atrial fibrillation; Rate controlled, continue beta blockers, anticoagulation with heparin drip Patient will be on oral anticoagulants of the heart Catheterization --Left Atrial thrombus; Full dose anticoagulation with heparin drip,High risk for thromboembolic phenomenon Cardiology following, heart catheterization tomorrow --Moderate mitral stenosis; probably secondary to undiagnosed rheumatic fever --History of lupus; stable --Seizure disorder; seizures precautions, continue antiepileptic medications and supportive care --DVT prophylaxis. Patient is already on heparin drip Hse Advisor recommendations noted and appreciated Plan of care discussed with the patient and her nurse History Interval history: Patient seen and evaluated. Medical records reviewed No new events reported by the nursing staff Denies chest pain or shortness of breath, on heparin drip Alert, awake, oriented 3, not in acute distress, vital signs reviewed Hospitalist Physical - Constitutional Vitals: Temp Pulse Resp BP Pulse Ox 97.5 F L 70 18 119/75 99 02/15/17 08:54 02/15/17 10:01 02/15/17 09:52 02/15/17 10:01 02/15/17 10:00 General appearance: Present: no acute distress, well-nourished - EENT Eyes: Present: PERRL, EOM intact - Neck Neck: Present: supple, normal ROM - Respiratory Respiratory effort: normal Respiratory: bilateral: diminished, negative: rales, rhonchi, wheezing - Cardiovascular Rhythm: regular Heart Sounds: Present: S1 & S2, diastolic murmur - Extremities Extremities: no ischemia, No edema - Abdominal General gastrointestinal: soft, non-tender, non-distended, normal bowel sounds - Integumentary Integumentary: Present: clear, warm - Psychiatric Psychiatric: appropriate mood/affect, cooperative - Neurologic Neurologic: CNII-XII intact, moves all extremities Results - Labs CBC & Chem 7: 02/14/17 13:28 02/13/17 05:18 Labs: Laboratory Last Values WBC 6.5 K/mm3 (4.5-11.0) 02/13/17 05:18 RBC 4.56 M/mm3 (3.65-5.03) 02/13/17 05:18 Hgb 12.2 gm/dl (10.1-14.3) 02/14/17 13:28 Hct 36.9 % (30.3-42.9) 02/14/17 13:28 MCV 78 fl (79-97) L 02/13/17 05:18 MCH 25 pg (28-32) L 02/13/17 05:18 MCHC 32 % (30-34) 02/13/17 05:18 RDW 15.1 % (13.2-15.2) 02/13/17 05:18 Plt Count 173 K/mm3 (140-440) 02/14/17 13:28 Lymph % (Auto) 28.3 % (13.4-35.0) 02/11/17 23:51 [place] % (Auto) 13.6 % (0.0-7.3) H 02/11/17 23:51 Eos % (Auto) 2.5 % (0.0-4.3) 02/11/17 23:51 Baso % (Auto) 0.3 % (0.0-1.8) 02/11/17 23:51 Lymph # 2.0 K/mm3 (1.2-5.4) 02/11/17 23:51 [place] # 1.0 K/mm3 (0.0-0.8) H 02/11/17 23:51 Eos # 0.2 K/mm3 (0.0-0.4) 02/11/17 23:51 Baso # 0.0 K/mm3 (0.0-0.1) 02/11/17 23:51 Seg Neutrophils % 55.3 % (40.0-70.0) 02/11/17 23:51 Seg Neutrophils # 3.9 K/mm3 (1.8-7.7) 02/11/17 23:51 PT 14.8 Sec. (12.2-14.9) 02/11/17 23:51 INR 1.10 (0.87-1.13) 02/11/17 23:51 APTT 26.1 Sec. (24.2-36.6) 02/11/17 23:51 Heparin Anti-Xa Level 0.44 U.I./ml (0.3-0.7) 02/14/17 22:49 Sodium 139 mmol/L (137-145) 02/13/17 05:18 Potassium 4.0 mmol/L (3.6-5.0) 02/13/17 05:18 Chloride 102.6 mmol/L (98-107) 02/13/17 05:18 Carbon Dioxide 28 mmol/L (22-30) 02/13/17 05:18 Anion Gap 12 mmol/L 02/13/17 05:18 BUN 15 mg/dL (7-17) 02/13/17 05:18 Creatinine 0.9 mg/dL (0.7-1.2) 02/13/17 05:18 Estimated GFR > 60 ml/min 02/13/17 05:18 BUN/Creatinine Ratio 16.66 % 02/13/17 05:18 Glucose 110 mg/dL (65-100) H 02/13/17 05:18 Calcium 8.1 mg/dL (8.4-10.2) L 02/13/17 05:18 Magnesium 1.90 mg/dL (1.7-2.3) 02/13/17 05:18 Troponin T < 0.010 ng/mL (0.00-0.029) 02/12/17 05:52 TSH 4.900 mlU/mL (0.270-4.200) H 02/12/17 00:23 Free T4 1.22 ng/dL (0.76-1.46) 02/12/17 09:19 Thyroxine (T4) 7.3 ug/dL (4.0-12.0) 02/12/17 09:19 HCG, Qual Negative (Negative) 02/11/17 23:51
[2017-02-15] MEDS: HEPARIN/ 0.45% NACL-25,000 UNIT/500 ML 25,000 UNIT/500 ML BAG IV SCH (23:50)
[2017-02-16 06:04] LABS: Basophils % (Auto) 0.4 % (0.0-1.8); Hematocrit 33.5 % (30.3-42.9); Mean Corpuscular HGB Conc 33 % (30-34); Mean Corpuscular Volume 78 fl (79-97); Platelet Count 159 K/mm3 (140-440); Red Blood Count 4.32 M/mm3 (3.65-5.03); Red Cell Distribution Width 14.8 % (13.2-15.2); White Blood Count 4.6 K/mm3 (4.5-11.0)
[2017-02-16 06:06] LABS: Mean Corpuscular Hemoglobin 25 pg (28-32)
[2017-02-16 06:14] LABS: INR 1.12 (0.87-1.13)
[2017-02-16 06:20] LABS: Partial Thromboplastin Time 83.6 Sec. (24.2-36.6)
[2017-02-16 06:27] LABS: Anion Gap 16 mmol/L; BUN/Creatinine Ratio 12.22; Blood Urea Nitrogen 11 mg/dL (7-17); Calcium 8.2 mg/dL (8.4-10.2); Carbon Dioxide 22 mmol/L (22-30); Chloride 106.2 mmol/L (98-107); Glucose 89 mg/dL (65-100); Potassium 4.3 mmol/L (3.6-5.0); Sodium 140 mmol/L (137-145)
[2017-02-16] MEDS ORDERED: HEPARIN/NS 5000 UNIT/500ML(CATH LAB) 1,000 ML IR ONE (09:26)
[2017-02-16] MEDS ORDERED: NACL 0.9% 500 ML 500 ML ONE (09:29)
[2017-02-16] MEDS ORDERED: NACL 0.9% 250ML 250 ML ONE (09:29)
[2017-02-16] MEDS: VERSED ONE ×2 (09:39→09:50)
[2017-02-16] MEDS: XYLOCAINE 2% INFILTRATI ONE ×2 (09:40→09:52)
[2017-02-16] MEDS: SUBLIMAZE ONE ×2 (09:40→09:50)
[2017-02-16] MEDS ORDERED: HEPARIN/NS 5000 UNIT/500ML(CATH LAB) 500 ML IR ONE (09:49)
[2017-02-16] MEDS ORDERED: XYLOCAINE 2% INFILTRATI ONE (09:58)
[2017-02-16] MEDS ORDERED: ZOFRAN ONE (10:53)
--- NOTE | 2017-02-16 11:01 | Prelim Cardiac Cath Report ---
Preliminary Cath Report - Hemodynamic Findings Aorta(AO): 145/92 Left Ventricular(LV): 139/24 Right Atrial Pressure: 14 (A-wave 16, V wave 16, mean 14) Right Ventricular Pressure (RV): 60 (60/18) Pulmonary Artery Pressure(PA): 61 (61/ 31) Pulmonary Artery Wedge Pressure: 24 (A wave 27, V wave 30,mean=24) Cardiac Output: 3.8 (Thermodiltion technique used,3 values of 3.8 l/mt noted consistently.Cardiac index 2.34) - Other Findings Estimated blood loss: minimal Estimated Ejection Fraction: 55 LV Contractility: normal Coronary Anatomy: Cardiac catheterization and coronary angiography report: Patient presently with shortness of breath and paroxysmal atrial flutter with the history of mitral stenosis in the past. Echocardiogram showed calcific mitral leaflet with Transesophageal echocardiogram showing organizing thrombus along with probable moderate mitral stenosis. This being performed for evaluation of mitral stenosis and evaluation of any coronary disease. Cardiac catheterization technique: Patient was brought to the catheterization laboratory in a fasting condition. Right groin area is thoroughly cleansed with Betadine solution and sterile drapes were applied. Local anesthesia was given using 2% Xylocaine. Right femoral vein puncture was made using 5 [place] micropuncture needle. 8 [place] sheath was introduced. Subsequently, using 7 [place] catheter ,and balloon floatation technique,right atrial, right ventricular and pulmonary artery pressures were obtained followed by obtaining pulmonary capillary wedge pressure. Subsequently right femoral artery puncture was made using a micropuncture needle. 5F sheath was introduced. 5 [place] multipurpose catheter was entered into the left ventricle. Simultaneous pressures of the left ventricule and pulmonary capillary wedge pressure were obtained. Thermodilution technique was used to obtain cardiac output. 3 sets of CO were obtained ,all consistently showed same cardiac output of 3.8 L/m. After obtaining right-sided pressures and cardiac output using same multipurpose catheter right coronary angiography and left coronary angiography were obtained in multiple views. After obtaining the angiograms , vein and sheath were removed and good hemostasis was achieved with pressure bandage. Following findings were noted. Left ventriculogram performed in [place] projection using hand injection showed normal-sized left ventricle with normal contractility. Right coronary artery nondominant vessel and angiographically smooth and normal. Arising normally. Neck she is left coronary artery arises normal from left coronary cusp, left main, LAD with corrosive in the apex and circumflex artery and its branches are angiographically smooth and normal. Right coronary artery is nondominant vessel. Final impression: Normal LV systolic function and normal coronary anatomy. Above findings suggest severe mitral stenosis with valve area of approximately 1.02 cm. Patient is in sinus rhythm throughout the procedure. Post Diagnosis: severe mitral stenosis with valve area of 1.02 sq. cm Normal coronary anatomy with normal with normal LV systolic function. Recommendations: CABG (Mitral valve repalcement.)
--- NOTE | 2017-02-16 11:44 | Progress Note ---
Assessment and Plan Paroxysmal atrial fibrillation Continue metoprolol 25 3 times a day LA thrombus Transesophageal echocardiogram: Probable moderate mitral stenosis with fixed calcified posterior leaflet with eccentric anteriorly directed mitral regurgitation, Mean gradient 8-10 mmHg, left atrial thrombus adherent to the posterior wall, ejection fraction of 50-60% Continue IV heparin drip Severe mitral stenosis probable undiagnosed rheumatic fever as a child ([facility]) Lupus Seizure disorder s/p LHC/RHC this AM - normal coronaries, severe mitral stenosis with valve area of approximately 1.02 cm. Initiate coumadin with tx INR 2-3 in setting of MS and continue heparin gtt until INR becomes therapeutic. Indications, potential risks, and benefits of systemic anticoagulation reviewed with pt and she is agreeable. Will plan for OP consultation with [facility] surgery for further eval/management of MS. Assessment and plan reviewed with pt at bedside. The patient has been seen in conjunction with Dr. Toledo who agrees with the assessment and plan of care. Subjective Date of service: 02/16/17 Principal diagnosis: MS; LA thrombus Interval history: seen s/p [facility] this AM, no complaints. VSS, remains in SR. Objective Last Vital Signs Temp 99.1 F 02/16/17 04:30 Pulse 18 L 02/16/17 04:30 Resp 20 02/16/17 04:30 BP 102/59 02/16/17 04:30 Pulse Ox 99 02/16/17 04:30 - Physical Examination General: Appears Well HEENT: Positive: PERRL, Normocephaly, Mucus Membranes Moist Neck: Positive: neck supple, trachea midline Cardiac: Positive: Reg Rate and Rhythm, S1/S2, Diastolic Murmur Lungs: Positive: clear to auscultation Neuro: Positive: Grossly Intact, Cranial Nerve 2-12 Intact Abdomen: Positive: Unremarkable, Soft, Active Bowel Sounds. Negative: Tender Skin: Positive: Clear. Negative: Rash, Wound Musculoskeletal: No Fluid Collection, No Pain, Normal Range of Motion Extremities: Present: upper extr. pulses, lower extr. pulses, warm. Absent: edema - Labs and Meds Coagulation 02/16/17 Range/Units 05:47 PT 14.3 (12.2-14.9) Sec. INR 1.12 (0.87-1.13) APTT 83.6 H* (24.2-36.6) Sec. CBC 02/16/17 Range/Units 05:47 WBC 4.6 (4.5-11.0) K/mm3 RBC 4.32 (3.65-5.03) M/mm3 Hgb 11.0 (10.1-14.3) gm/dl Hct 33.5 (30.3-42.9) % Plt Count 159 (140-440) K/mm3 Lymph # 1.2 (1.2-5.4) K/mm3 [place] # 0.6 (0.0-0.8) K/mm3 Eos # 0.2 (0.0-0.4) K/mm3 Baso # 0.0 (0.0-0.1) K/mm3 Comprehensive Metabolic Panel 02/16/17 Range/Units 05:47 Sodium 140 (137-145) mmol/L Potassium 4.3 (3.6-5.0) mmol/L Chloride 106.2 (98-107) mmol/L Carbon Dioxide 22 (22-30) mmol/L BUN 11 (7-17) mg/dL Creatinine 0.9 (0.7-1.2) mg/dL Glucose 89 (65-100) mg/dL Calcium 8.2 L (8.4-10.2) mg/dL - Imaging and Cardiology EKG: report reviewed, image reviewed Echo: report reviewed - Telemetry EKG Rhythm: Sinus Rhythm
[2017-02-16] MEDS: NITRO-BID 2% TP SCH ×3 (13:45→17:20)
[2017-02-16] MEDS: LOPRESSOR PO SCH ×3 (13:46→21:17)
[2017-02-16] MEDS: KEPPRA PO SCH ×2 (13:52→21:14)
[2017-02-16] MEDS: BABY ASPIRIN PO SCH (13:52)
[2017-02-16] MEDS: VIMPAT PO SCH ×2 (13:52→21:15)
[2017-02-16] MEDS: COUMADIN PO SCH (17:20)
--- NOTE | 2017-02-16 18:05 | Progress Note ---
Assessment and Plan Assessment and plan: --Moderate mitral stenosis; valve area of 1.02 cm Need outpatient evaluation at [facility] for further evaluation and management of mitral stenosis --Anticoagulation; continue heparin, start Coumadin, target INR 2-3 Will discontinue heparin once INR is therapeutic --Paroxysmal atrial fibrillation; Rate controlled, continue beta blockers, anticoagulation with heparin drip Patient will be on oral anticoagulants of the heart Catheterization --Left Atrial thrombus; Full dose anticoagulation with heparin drip,High risk for thromboembolic phenomenon Cardiology following, heart catheterization tomorrow --History of lupus; stable --Seizure disorder; seizures precautions, continue antiepileptic medications and supportive care --DVT prophylaxis. Patient is already on heparin drip Plan of care discussed with the patient, family members at the bedside and her nurse Discharge planning. Case management History Interval history: Patient seen and evaluated medical records reviewed Patient underwent left heart catheterization, revealed severe mitral stenosis with valve area of 1.02 cm, normal LV function and normal coronaries Recommend outpatient evaluation at [facility] for MS evaluation and management Patient feels better denies any chest pain or shortness of breath Alert awake oriented 3 not in acute distress, vital signs reviewed stable Hospitalist Physical - Constitutional Vitals: Temp Pulse Resp BP Pulse Ox 97.6 F 69 18 130/89 98 02/16/17 17:35 02/16/17 17:35 02/16/17 17:35 02/16/17 17:35 02/16/17 17:35 General appearance: Present: no acute distress, well-nourished - EENT Eyes: Present: PERRL, EOM intact - Neck Neck: Present: supple, normal ROM - Respiratory Respiratory effort: normal Respiratory: bilateral: diminished, negative: rales, rhonchi, wheezing - Cardiovascular Rhythm: regular Heart Sounds: Present: S1 & S2, diastolic murmur - Extremities Extremities: no ischemia, pulses intact, pulses symmetrical - Abdominal General gastrointestinal: soft, non-tender, non-distended, normal bowel sounds - Integumentary Integumentary: Present: clear, warm - Psychiatric Psychiatric: appropriate mood/affect, cooperative - Neurologic Neurologic: CNII-XII intact, moves all extremities Results - Labs CBC & Chem 7: 02/16/17 05:47 02/16/17 05:47 Labs: Laboratory Last Values WBC 4.6 K/mm3 (4.5-11.0) 02/16/17 05:47 RBC 4.32 M/mm3 (3.65-5.03) 02/16/17 05:47 Hgb 11.0 gm/dl (10.1-14.3) 02/16/17 05:47 Hct 33.5 % (30.3-42.9) 02/16/17 05:47 MCV 78 fl (79-97) L 02/16/17 05:47 MCH 25 pg (28-32) L 02/16/17 05:47 MCHC 33 % (30-34) 02/16/17 05:47 RDW 14.8 % (13.2-15.2) 02/16/17 05:47 Plt Count 159 K/mm3 (140-440) 02/16/17 05:47 Lymph % (Auto) 25.1 % (13.4-35.0) 02/16/17 05:47 [place] % (Auto) 12.5 % (0.0-7.3) H 02/16/17 05:47 Eos % (Auto) 5.0 % (0.0-4.3) H 02/16/17 05:47 Baso % (Auto) 0.4 % (0.0-1.8) 02/16/17 05:47 Lymph # 1.2 K/mm3 (1.2-5.4) 02/16/17 05:47 [place] # 0.6 K/mm3 (0.0-0.8) 02/16/17 05:47 Eos # 0.2 K/mm3 (0.0-0.4) 02/16/17 05:47 Baso # 0.0 K/mm3 (0.0-0.1) 02/16/17 05:47 Seg Neutrophils % 57.0 % (40.0-70.0) 02/16/17 05:47 Seg Neutrophils # 2.6 K/mm3 (1.8-7.7) 02/16/17 05:47 PT 14.3 Sec. (12.2-14.9) 02/16/17 05:47 INR 1.12 (0.87-1.13) 02/16/17 05:47 APTT 83.6 Sec. (24.2-36.6) H* 02/16/17 05:47 Heparin Anti-Xa Level 0.53 U.I./ml (0.3-0.7) 02/15/17 23:12 Sodium 140 mmol/L (137-145) 02/16/17 05:47 Potassium 4.3 mmol/L (3.6-5.0) 02/16/17 05:47 Chloride 106.2 mmol/L (98-107) 02/16/17 05:47 Carbon Dioxide 22 mmol/L (22-30) 02/16/17 05:47 Anion Gap 16 mmol/L 02/16/17 05:47 BUN 11 mg/dL (7-17) 02/16/17 05:47 Creatinine 0.9 mg/dL (0.7-1.2) 02/16/17 05:47 Estimated GFR > 60 ml/min 02/16/17 05:47 BUN/Creatinine Ratio 12.22 % 02/16/17 05:47 Glucose 89 mg/dL (65-100) 02/16/17 05:47 Calcium 8.2 mg/dL (8.4-10.2) L 02/16/17 05:47 Magnesium 1.90 mg/dL (1.7-2.3) 02/13/17 05:18 Troponin T < 0.010 ng/mL (0.00-0.029) 02/12/17 05:52 TSH 4.900 mlU/mL (0.270-4.200) H 02/12/17 00:23 Free T4 1.22 ng/dL (0.76-1.46) 02/12/17 09:19 Thyroxine (T4) 7.3 ug/dL (4.0-12.0) 02/12/17 09:19 HCG, Qual Negative (Negative) 02/11/17 23:51
[2017-02-17] MEDS: HEPARIN/ 0.45% NACL-25,000 UNIT/500 ML 25,000 UNIT/500 ML BAG IV SCH ×2 (00:53→09:14)
[2017-02-17] MEDS: NITRO-BID 2% TP SCH ×4 (05:26→17:38)
[2017-02-17 07:14] LABS: INR 1.2 (0.87-1.13)
[2017-02-17] MEDS: KEPPRA PO SCH ×2 (09:13→22:01)
[2017-02-17] MEDS: VIMPAT PO SCH ×2 (09:14→22:01)
[2017-02-17] MEDS: BABY ASPIRIN PO SCH (09:14)
[2017-02-17] MEDS: LOPRESSOR PO SCH ×3 (09:14→22:01)
--- NOTE | 2017-02-17 12:12 | Progress Note ---
Assessment and Plan Paroxysmal atrial fibrillation Continue metoprolol 25 3 times a day LA thrombus Transesophageal echocardiogram: Probable moderate mitral stenosis with fixed calcified posterior leaflet with eccentric anteriorly directed mitral regurgitation, Mean gradient 8-10 mmHg, left atrial thrombus adherent to the posterior wall, ejection fraction of 50-60% Continue IV heparin drip Severe mitral stenosis probable undiagnosed [facility] a [facility] Lupus Seizure disorder s/p LHC/RHC - normal coronaries, severe mitral stenosis with valve area of approximately 1.02 cm. Cont coumadin with tx INR 2-3 in setting of MS and continue heparin gtt until INR becomes therapeutic. Will plan for OP consultation with [facility] CT surgery for further eval/management of MS. Assessment and plan reviewed with pt and pt's family at bedside. The patient has been seen in conjunction with Dr. De La Rosa who agrees with the assessment and plan of care. Subjective Date of service: 02/17/17 Principal diagnosis: MS; LA thrombus Interval history: no complaints. VSS, remains in SR. and daughter at bedside. Heparin gtt infusing. Objective Last Vital Signs Temp 97.5 F L 02/17/17 09:21 Pulse 58 L 02/17/17 10:55 Resp 18 02/17/17 09:21 BP 102/61 02/17/17 09:21 Pulse Ox 96 02/17/17 09:21 - Physical Examination General: Appears Well HEENT: Positive: PERRL, Normocephaly, Mucus Membranes Moist Neck: Positive: neck supple, trachea midline Cardiac: Positive: Reg Rate and Rhythm, S1/S2, Diastolic Murmur Lungs: Positive: clear to auscultation Neuro: Positive: Grossly Intact, Cranial Nerve 2-12 Intact Abdomen: Positive: Unremarkable, Soft, Active Bowel Sounds. Negative: Tender Skin: Positive: Clear. Negative: Rash, Wound Musculoskeletal: No Fluid Collection, No Pain, Normal Range of Motion Extremities: Present: upper extr. pulses, lower extr. pulses, warm. Absent: edema - Labs and Meds Coagulation 02/17/17 Range/Units 05:56 PT 15.1 H (12.2-14.9) Sec. INR 1.20 H (0.87-1.13) - Imaging and Cardiology EKG: report reviewed, image reviewed Echo: report reviewed - Telemetry EKG Rhythm: Sinus Rhythm
[2017-02-17] MEDS: COUMADIN PO SCH (16:42)
--- NOTE | 2017-02-17 18:32 | Progress Note ---
Assessment and Plan Assessment and plan: --Moderate mitral stenosis; valve area of 1.02 cm Need outpatient evaluation at [facility] for further evaluation and management of mitral stenosis --Anticoagulation; continue heparin, start Coumadin, target INR 2-3 Will discontinue heparin once INR is therapeutic --Paroxysmal atrial fibrillation; Rate controlled, continue beta blockers, anticoagulation with heparin drip Patient will be on oral anticoagulants of the heart Catheterization --Left Atrial thrombus; Full dose anticoagulation with heparin drip,High risk for thromboembolic phenomenon Cardiology following, heart catheterization tomorrow --History of lupus; stable --Seizure disorder; seizures precautions, continue antiepileptic medications and supportive care --DVT prophylaxis. Patient is already on heparin drip Plan of care discussed with the patient, family members at the bedside and her nurse Discharge planning. Case management History Interval history: Patient seen and evaluated medical records reviewed No new events reported by the nursing staff Patient feels better no new complaints, alert awake oriented 3 ,not in acute distress Hospitalist Physical - Constitutional Vitals: Temp Pulse Resp BP Pulse Ox 97.5 F L 58 L 18 94/55 96 02/17/17 12:55 02/17/17 12:55 02/17/17 12:55 02/17/17 12:55 02/17/17 12:55 General appearance: Present: no acute distress, well-nourished - EENT Eyes: Present: PERRL, EOM intact - Neck Neck: Present: supple, normal ROM - Respiratory Respiratory effort: normal Respiratory: bilateral: diminished, rhonchi, negative: rales, wheezing - Cardiovascular Rhythm: regular Heart Sounds: Present: S1 & S2 - Extremities Extremities: no ischemia, No edema - Abdominal General gastrointestinal: soft, non-tender, non-distended - Integumentary Integumentary: Present: clear, warm - Psychiatric Psychiatric: appropriate mood/affect, cooperative - Neurologic Neurologic: CNII-XII intact, moves all extremities Results - Labs CBC & Chem 7: 02/16/17 05:47 02/16/17 05:47 Labs: Laboratory Last Values WBC 4.6 K/mm3 (4.5-11.0) 02/16/17 05:47 RBC 4.32 M/mm3 (3.65-5.03) 02/16/17 05:47 Hgb 11.0 gm/dl (10.1-14.3) 02/16/17 05:47 Hct 33.5 % (30.3-42.9) 02/16/17 05:47 MCV 78 fl (79-97) L 02/16/17 05:47 MCH 25 pg (28-32) L 02/16/17 05:47 MCHC 33 % (30-34) 02/16/17 05:47 RDW 14.8 % (13.2-15.2) 02/16/17 05:47 Plt Count 159 K/mm3 (140-440) 02/16/17 05:47 Lymph % (Auto) 25.1 % (13.4-35.0) 02/16/17 05:47 [place] % (Auto) 12.5 % (0.0-7.3) H 02/16/17 05:47 Eos % (Auto) 5.0 % (0.0-4.3) H 02/16/17 05:47 Baso % (Auto) 0.4 % (0.0-1.8) 02/16/17 05:47 Lymph # 1.2 K/mm3 (1.2-5.4) 02/16/17 05:47 [place] # 0.6 K/mm3 (0.0-0.8) 02/16/17 05:47 Eos # 0.2 K/mm3 (0.0-0.4) 02/16/17 05:47 Baso # 0.0 K/mm3 (0.0-0.1) 02/16/17 05:47 Seg Neutrophils % 57.0 % (40.0-70.0) 02/16/17 05:47 Seg Neutrophils # 2.6 K/mm3 (1.8-7.7) 02/16/17 05:47 PT 15.1 Sec. (12.2-14.9) H 02/17/17 05:56 INR 1.20 (0.87-1.13) H 02/17/17 05:56 APTT 83.6 Sec. (24.2-36.6) H* 02/16/17 05:47 Heparin Anti-Xa Level 0.69 U.I./ml (0.3-0.7) 02/16/17 22:37 Sodium 140 mmol/L (137-145) 02/16/17 05:47 Potassium 4.3 mmol/L (3.6-5.0) 02/16/17 05:47 Chloride 106.2 mmol/L (98-107) 02/16/17 05:47 Carbon Dioxide 22 mmol/L (22-30) 02/16/17 05:47 Anion Gap 16 mmol/L 02/16/17 05:47 BUN 11 mg/dL (7-17) 02/16/17 05:47 Creatinine 0.9 mg/dL (0.7-1.2) 02/16/17 05:47 Estimated GFR > 60 ml/min 02/16/17 05:47 BUN/Creatinine Ratio 12.22 % 02/16/17 05:47 Glucose 89 mg/dL (65-100) 02/16/17 05:47 Calcium 8.2 mg/dL (8.4-10.2) L 02/16/17 05:47 Magnesium 1.90 mg/dL (1.7-2.3) 02/13/17 05:18 Troponin T < 0.010 ng/mL (0.00-0.029) 02/12/17 05:52 TSH 4.900 mlU/mL (0.270-4.200) H 02/12/17 00:23 Free T4 1.22 ng/dL (0.76-1.46) 02/12/17 09:19 Thyroxine (T4) 7.3 ug/dL (4.0-12.0) 02/12/17 09:19 HCG, Qual Negative (Negative) 02/11/17 23:51
[2017-02-18] MEDS: NITRO-BID 2% TP SCH ×2 (05:01→09:11)
[2017-02-18 06:18] LABS: INR 2.04 (0.87-1.13)
[2017-02-18 06:26] LABS: Hematocrit 32.3 % (30.3-42.9); Hemoglobin 10.6 gm/dl (10.1-14.3)
[2017-02-18] MEDS: HEPARIN/ 0.45% NACL-25,000 UNIT/500 ML 25,000 UNIT/500 ML BAG IV SCH (07:12)
[2017-02-18 08:47] VITALS: BP 118/63
[2017-02-18] MEDS: KEPPRA PO SCH (09:10)
[2017-02-18] MEDS: BABY ASPIRIN PO SCH (09:10)
[2017-02-18] MEDS: LOPRESSOR PO SCH (09:11)
[2017-02-18] MEDS: VIMPAT PO SCH (09:11)
--- NOTE | 2017-02-18 09:15 | Progress Note ---
Hospitalist Physical - Constitutional Vitals: Temp Pulse Resp BP Pulse Ox 98.2 F 60 18 118/63 100 02/18/17 08:47 02/18/17 08:47 02/18/17 08:47 02/18/17 08:47 02/18/17 08:47 General appearance: Present: no acute distress, well-nourished Results - Labs CBC & Chem 7: 02/18/17 06:00 02/16/17 05:47 Labs: Laboratory Last Values WBC 4.6 K/mm3 (4.5-11.0) 02/16/17 05:47 RBC 4.32 M/mm3 (3.65-5.03) 02/16/17 05:47 Hgb 10.6 gm/dl (10.1-14.3) 02/18/17 06:00 Hct 32.3 % (30.3-42.9) 02/18/17 06:00 MCV 78 fl (79-97) L 02/16/17 05:47 MCH 25 pg (28-32) L 02/16/17 05:47 MCHC 33 % (30-34) 02/16/17 05:47 RDW 14.8 % (13.2-15.2) 02/16/17 05:47 Plt Count 159 K/mm3 (140-440) 02/18/17 06:00 Lymph % (Auto) 25.1 % (13.4-35.0) 02/16/17 05:47 [place] % (Auto) 12.5 % (0.0-7.3) H 02/16/17 05:47 Eos % (Auto) 5.0 % (0.0-4.3) H 02/16/17 05:47 Baso % (Auto) 0.4 % (0.0-1.8) 02/16/17 05:47 Lymph # 1.2 K/mm3 (1.2-5.4) 02/16/17 05:47 [place] # 0.6 K/mm3 (0.0-0.8) 02/16/17 05:47 Eos # 0.2 K/mm3 (0.0-0.4) 02/16/17 05:47 Baso # 0.0 K/mm3 (0.0-0.1) 02/16/17 05:47 Seg Neutrophils % 57.0 % (40.0-70.0) 02/16/17 05:47 Seg Neutrophils # 2.6 K/mm3 (1.8-7.7) 02/16/17 05:47 PT 23.1 Sec. (12.2-14.9) H 02/18/17 05:38 INR 2.04 (0.87-1.13) H 02/18/17 05:38 APTT 83.6 Sec. (24.2-36.6) H* 02/16/17 05:47 Heparin Anti-Xa Level 0.75 U.I./ml (0.3-0.7) H 02/18/17 05:38 Sodium 140 mmol/L (137-145) 02/16/17 05:47 Potassium 4.3 mmol/L (3.6-5.0) 02/16/17 05:47 Chloride 106.2 mmol/L (98-107) 02/16/17 05:47 Carbon Dioxide 22 mmol/L (22-30) 02/16/17 05:47 Anion Gap 16 mmol/L 02/16/17 05:47 BUN 11 mg/dL (7-17) 02/16/17 05:47 Creatinine 0.9 mg/dL (0.7-1.2) 02/16/17 05:47 Estimated GFR > 60 ml/min 02/16/17 05:47 BUN/Creatinine Ratio 12.22 % 02/16/17 05:47 Glucose 89 mg/dL (65-100) 02/16/17 05:47 Calcium 8.2 mg/dL (8.4-10.2) L 02/16/17 05:47 Magnesium 1.90 mg/dL (1.7-2.3) 02/13/17 05:18 Troponin T < 0.010 ng/mL (0.00-0.029) 02/12/17 05:52 TSH 4.900 mlU/mL (0.270-4.200) H 02/12/17 00:23 Free T4 1.22 ng/dL (0.76-1.46) 02/12/17 09:19 Thyroxine (T4) 7.3 ug/dL (4.0-12.0) 02/12/17 09:19 HCG, Qual Negative (Negative) 02/11/17 23:51
--- NOTE | 2017-02-18 10:07 | Progress Note ---
Assessment and Plan Paroxysmal atrial fibrillation Continue metoprolol 25 3 times a day LA thrombus Transesophageal echocardiogram: Probable moderate mitral stenosis with fixed calcified posterior leaflet with eccentric anteriorly directed mitral regurgitation, Mean gradient 8-10 mmHg, left atrial thrombus adherent to the posterior wall, ejection fraction of 50-60% Severe mitral stenosis probable undiagnosed rheumatic fever as a child ([place]) Lupus Seizure disorder INR 2.04 this AM. Heparin gtt d/c'd. Continue coumadin with tx INR 2-3. Currently stable cardiac status. Pt may discharge home from cardiology standpoint. On discharge, recommend continuation of Coumadin, 5mg daily. Follow up in our [place] office with Dr. Pedro on 03/05/2017 @ 10:15AM. Follow up in our [place] office for INR check on 02/23/2017 @ 10:15AM. Plan for OP consultation with [place] CT surgeon, Dr. Raines, for further eval/ management of MS. Our office is to call patient with appointment date and time once appointment is established. Assessment and plan reviewed with pt at bedside. The patient has been seen in conjunction with Dr. De La Rosa who agrees with the assessment and plan of care. Subjective Date of service: 02/18/17 Principal diagnosis: MS; LA thrombus Interval history: No complaints. VSS, remains in SR. heparin gtt d/c'd as INR is therapeutic this AM. Objective Last Vital Signs Temp 98.2 F 02/18/17 08:47 Pulse 59 L 02/18/17 09:55 Resp 18 02/18/17 08:47 BP 118/63 02/18/17 08:47 Pulse Ox 100 02/18/17 08:47 - Physical Examination General: Appears Well HEENT: Positive: PERRL, Normocephaly, Mucus Membranes Moist Neck: Positive: neck supple, trachea midline Cardiac: Positive: Reg Rate and Rhythm, S1/S2, Diastolic Murmur Lungs: Positive: clear to auscultation Neuro: Positive: Grossly Intact, Cranial Nerve 2-12 Intact Abdomen: Positive: Unremarkable, Soft, Active Bowel Sounds. Negative: Tender Skin: Positive: Clear. Negative: Rash, Wound Musculoskeletal: No Fluid Collection, No Pain, Normal Range of Motion Extremities: Present: upper extr. pulses, lower extr. pulses, warm. Absent: edema - Labs and Meds Coagulation 02/18/17 Range/Units 05:38 PT 23.1 H (12.2-14.9) Sec. INR 2.04 H (0.87-1.13) CBC 02/18/17 Range/Units 06:00 Hgb 10.6 (10.1-14.3) gm/dl Hct 32.3 (30.3-42.9) % Plt Count 159 (140-440) K/mm3 - Imaging and Cardiology EKG: report reviewed, image reviewed Echo: report reviewed - Telemetry EKG Rhythm: Sinus Rhythm
--- NOTE | 2017-02-18 11:09 | Discharge Summary ---
Providers - Providers Date of Admission: 02/12/17 05:20 Date of discharge: 02/18/17 Attending physician: VESNA PRITCHETT Primary care physician: [employer] DIRECT[employer] Hospitalization Condition: Stable Disposition: DC-01 TO HOME OR SELFCARE Time spent for discharge: 32 min Core Measure Documentation - Palliative Care Palliative Care/ Comfort Measures: Not Applicable - Core Measures Any of the following diagnoses?: none Exam - Constitutional Vitals: Temp Pulse Resp BP Pulse Ox 98.2 F 59 L 18 118/63 100 02/18/17 08:47 02/18/17 09:55 02/18/17 08:47 02/18/17 08:47 02/18/17 08:47 General appearance: Present: no acute distress, well-nourished - EENT Eyes: Present: PERRL, EOM intact - Neck Neck: Present: supple, normal ROM - Respiratory Respiratory effort: normal Respiratory: bilateral: diminished, negative: rales, rhonchi, wheezing - Cardiovascular Rhythm: regular Heart Sounds: Present: S1 & S2 - Extremities Extremities: no ischemia, pulses intact, No edema - Abdominal General gastrointestinal: Present: soft, non-tender, non-distended, normal bowel sounds - Integumentary Integumentary: Present: clear, warm - Musculoskeletal Musculoskeletal: strength equal bilaterally - Psychiatric Psychiatric: appropriate mood/affect, cooperative - Neurologic Neurologic: CNII-XII intact, moves all extremities Plan Activity: no restrictions Diet: other (cardiac diet) Additional Instructions: f/u register repairer at [place] office on at 10:15 am. f/u [place] office on 02/23/17 for INR check. Target INR 2-3 Follow up with: BRITTANIE ALFRED MD [Primary Care Provider] - 3-5 Days DAVID MENDOZA MD [Staff Physician] - 7 Days Forms: Warfarin Discharge Instruction Prescriptions: Metoprolol [Lopressor TAB] 25 mg PO TID #90 tablet Warfarin [Coumadin] 5 mg PO QDAY #30 tablet
[2017-02-18] MEDS ORDERED: COUMADIN NO DOSE TODAY PO ONE (17:00)
== END 2017-02-18 12:33 | disposition home or self-care (01) | DRG 287 ==
LOC: ED 23:43 → 4A 02-12 05:20
PROVIDERS: ADMIT Internal Medicine; ATTEND Internal Medicine
PROC: 4A023N8 Measurement of Cardiac Sampling and Pressure, Bilateral, Percutaneous Approach (ICD-10-PCS; principal; 2017-02-16)
PROC: B2111ZZ Fluoroscopy of Multiple Coronary Arteries using Low Osmolar Contrast (ICD-10-PCS; 2017-02-16)
DX: I51.3 Intracardiac thrombosis, not elsewhere classified (principal); I48.92 Unspecified atrial flutter; I05.0 Rheumatic mitral stenosis; G40.909 Epilepsy, unspecified, not intractable, without status epilepticus; L93.0 Discoid lupus erythematosus; I48.0 Paroxysmal atrial fibrillation
CPT/HCPCS: 36415; 71010; 71275; 80048; 83735; 84436; 84439; 84443; 84484; 84703; 85014; 85018; 85025; 85027; 85049; 85520; 85610; 85730; 93005; 93010; 93306; 93312; 93320; 93325; 93460; 94760; 96374; 99285; J1644; J2250; J2405; J2704; J3010; J7040; J7050; Q9967